=== PATIENT | female | born 1950 | race Hispanic/Latino ===

== ENCOUNTER → 2019-03-30 | Outpatient (CLI) | payer OTHER | END | disposition home or self-care (01) | LOC: RAH 14:58 | PROVIDERS: ATTEND Internal Medicine | DX: Z12.31 Encounter for screening mammogram for malignant neoplasm of breast (principal) | CPT/HCPCS: 77067 ==

== ENCOUNTER → 2019-05-05 | Outpatient (CLI) | payer OTHER | END | disposition home or self-care (01) | LOC: RAH 04-20 10:57 | PROVIDERS: ATTEND Internal Medicine | DX: N60.01 Solitary cyst of right breast (principal) | CPT/HCPCS: 76641; 77065 ==

== ENCOUNTER → 2021-10-02 | Outpatient (CLI) | payer OTHER | END | disposition home or self-care (01) | LOC: RAH 13:19 | PROVIDERS: ATTEND Internal Medicine | DX: Z12.31 Encounter for screening mammogram for malignant neoplasm of breast (principal) | CPT/HCPCS: 77067 ==

== ENCOUNTER → 2022-10-03 | Outpatient (CLI) | payer OTHER | END | disposition home or self-care (01) | LOC: RAH 09:49 | PROVIDERS: ATTEND Internal Medicine | DX: Z12.31 Encounter for screening mammogram for malignant neoplasm of breast (principal) | CPT/HCPCS: 77067 ==